=== PATIENT | male | born 1985 | race American Indian/Alaskan Native ===

== ENCOUNTER 2018-05-11 19:09 | Emergency (ER) | payer MEDICARE, MEDICAID ==
[2018-05-11 19:44] VITALS: BP 135/98
== END 2018-05-11 19:50 | disposition left against medical advice (07) ==
LOC: ED 19:09
DX: M25.562 Pain in left knee (principal); Z53.21 Procedure and treatment not carried out due to patient leaving prior to being seen by health care provider

== ENCOUNTER 2018-05-12 07:36 | Emergency (ER) | payer MEDICARE, MEDICAID ==
[2018-05-12 07:57] VITALS: BP 131/92
--- NOTE | 2018-05-12 09:02 | Emergency Department Report ---
ED General Adult HPI - General Chief complaint: Medical Clearance Stated complaint: RING REMOVE Time Seen by Provider: 05/12/18 08:19 Source: patient Mode of arrival: Ambulatory Limitations: No Limitations - History of Present Illness Initial comments: This is a 32 y.o. male that presents with a ring stuck on right 3rd finger for 2 days. Patient reports putting ring on 2 days ago without any problems. When he woke up yesterday his 3rd finger on the right hand was swollen and numb. He is able to move finger but reports feeling tingling sensation as finger is sleep. Patient reports trying to remove but unsuccessful. Onset/Timin -: days(s) Location: upper extremity (right 3rd digit) Radiation: non-radiation Severity scale (0 -10): 0 Quality: aching Consistency: constant Improves with: none Worsens with: movement Associated Symptoms: denies other symptoms Treatments Prior to Arrival: none - Related Data Allergies Allergy/AdvReac Type Severity Reaction Status Date / Time lisinopril Allergy Hives Verified 05/12/18 07:55 ziprasidone [From Geodon] Allergy Hives Verified 05/12/18 07:55 ED Review of Systems ROS: Stated complaint: RING REMOVE Other details as noted in HPI Constitutional: denies: chills, fever Respiratory: denies: cough, shortness of breath, wheezing Cardiovascular: denies: chest pain, palpitations Gastrointestinal: denies: abdominal pain, nausea, diarrhea Musculoskeletal: joint swelling (3rd digit swelling and pain ). denies: back pain, arthralgia Neurological: numbness. denies: headache, weakness, paresthesias Psychiatric: denies: anxiety, depression ED Past Medical Hx - Past Medical History Hx Hypertension: Yes Hx Diabetes: Yes - Social History Smoking Status: Never Smoker Substance Use Type: Alcohol ED Physical Exam - General Limitations: No Limitations General appearance: alert, in no apparent distress - Respiratory Respiratory exam: Present: normal lung sounds bilaterally. Absent: respiratory distress - Cardiovascular Cardiovascular Exam: Present: regular rate, normal rhythm. Absent: systolic murmur, diastolic murmur, rubs, gallop - GI/Abdominal GI/Abdominal exam: Present: soft, normal bowel sounds - Expanded Upper Extremity Exam Right Shoulder Exam: Present: normal inspection, full ROM Upper Arm exam: Present: normal inspection, full ROM Elbow exam: Present: normal inspection, full ROM Forearm Wrist exam: Present: normal inspection, full ROM Hand Wrist exam: Present: tenderness, swelling (swelling of 3rd PIP joint), erythema. Absent: full ROM, abrasion, laceration, ecchymosis, deformity, crepidus, dislocation, amputation, nail avulsion, subungual hematoma - Neurological Exam Neurological exam: Present: alert, oriented X3 - Psychiatric Psychiatric exam: Present: agitated - Skin Skin exam: Present: warm, dry, intact, normal color. Absent: rash ED Course Vital Signs 05/12/18 07:55 Temperature 98.3 F Pulse Rate 103 H Respiratory 18 Rate Blood Pressure 131/92 O2 Sat by Pulse 99 Oximetry ED Medical Decision Making - Medical Decision Making This is a 32 y.o. male that presents with swelling and pain to 3rd phalanx from entrapped ring. Patient is stable and was examined by me. Patient is agitated after 2 failed attempts to remove ring with ring cutter. Security was notified and patient was informed of risk of skin breakdown and tissue necrosis if he doesn't allow us to remove constricting ring. Patient decided to leave against medical advice. Critical care attestation.: If time is entered above; I have spent that time in minutes in the direct care of this critically ill patient, excluding procedure time. ED Disposition Clinical Impression: Left against medical advice, Ring or other jewelry causing external constriction, initial encounter Disposition: DC-07 LEFT AGAINST MED ADVICE Is pt being admited?: No Condition: Stable Referrals: PRIMARY CARE, [Primary Care Provider] - 3-5 Days
== END 2018-05-12 08:59 | disposition left against medical advice (07) ==
LOC: ED 07:36
DX: M79.644 Pain in right finger(s) (principal); I10 Essential (primary) hypertension; E11.9 Type 2 diabetes mellitus without complications; Z88.8 Allergy status to other drugs, medicaments and biological substances; W49.04XA Ring or other jewelry causing external constriction, initial encounter; Y93.89 Activity, other specified; Y92.89 Other specified places as the place of occurrence of the external cause; Y99.8 Other external cause status
CPT/HCPCS: 99282

== ENCOUNTER 2019-08-19 00:10 | Emergency (ER) | payer MEDICARE ==
[2019-08-19 00:19] VITALS: BP 147/83
--- NOTE | 2019-08-19 01:29 | XRay Report ---
CHEST 2 VIEWS INDICATION / CLINICAL INFORMATION: chest pain. COMPARISON: None available. FINDINGS: SUPPORT DEVICES: None. HEART / MEDIASTINUM: No significant abnormality. LUNGS / PLEURA: No significant pulmonary or pleural abnormality. No pneumothorax. ADDITIONAL FINDINGS: No significant additional findings. IMPRESSION: 1. No acute findings. Signer Name: Brennen Rhoades MD Signed: 08/19/2019 1:24 AM Workstation Name: [id number]
[2019-08-19 01:37] LABS: Hematocrit 36.4 % (35.5-45.6); Hemoglobin 12.8 gm/dl (11.8-15.2); Mean Corpuscular HGB Conc 35 % (32-34); Mean Corpuscular Volume 90 fl (84-94); Platelet Count 203 K/mm3 (140-440); Red Blood Count 4.04 M/mm3 (3.65-5.03); Red Cell Distribution Width 15.1 % (13.2-15.2)
[2019-08-19 01:51] LABS: BUN/Creatinine Ratio 16; Blood Urea Nitrogen 13 mg/dL (9-20); Calcium 8.8 mg/dL (8.4-10.2); Hemolysis Index 16
--- NOTE | 2019-08-19 01:57 | Emergency Department Report ---
ED General Adult HPI - General Chief complaint: Pain General Stated complaint: BACK ,FOOT PAIN ,COUGH Time Seen by Provider: 08/19/19 01:01 Source: patient Mode of arrival: Ambulatory Limitations: No Limitations - History of Present Illness Initial comments: Mr. gabino Eaton is a 34 -year-old -[place] male with a history of hypertension, asthma, type 2 diabetes, arthralgia, and depression. pt presents for right sided cp that worsens with cough. there is no fever chills, cough is productive yellow green. pt states symptoms are exacerbated by environmental exposure. Onset/Timin -: month(s) Location: chest Radiation: non-radiation Severity scale (0 -10): 4 Quality: aching Consistency: constant Improves with: none Worsens with: other (environmental exposure ) Associated Symptoms: chest pain, cough - Related Data Previous Rx's Medication Instructions Recorded Last Taken Type ALBUTEROL Inhaler (OR & NICU) 2 puff IH QID PRN #1 inhalation 08/19/19 Unknown Rx [ProAir HFA Inhaler] Benzonatate [Tessalon Perles] 100 mg PO Q8HR PRN #30 capsule 08/19/19 Unknown Rx Ibuprofen [Motrin 800 MG tab] 800 mg PO Q8HR PRN #30 tablet 08/19/19 Unknown Rx predniSONE [Deltasone] 40 mg PO QDAY 5 Days #10 tab 08/19/19 Unknown Rx Allergies Allergy/AdvReac Type Severity Reaction Status Date / Time lisinopril Allergy Hives Verified 05/12/18 07:55 ziprasidone [From Geodon] Allergy Hives Verified 05/12/18 07:55 ED Review of Systems ROS: Stated complaint: BACK ,FOOT PAIN ,COUGH Other details as noted in HPI Constitutional: denies: chills, fever Eyes: denies: eye pain, eye discharge, vision change ENT: congestion. denies: ear pain, throat pain Respiratory: cough. denies: shortness of breath, wheezing Cardiovascular: chest pain Endocrine: no symptoms reported Gastrointestinal: denies: abdominal pain, nausea, vomiting, diarrhea Genitourinary: denies: urgency, dysuria Musculoskeletal: denies: back pain, joint swelling, arthralgia Skin: denies: rash, lesions Neurological: denies: headache, weakness, paresthesias, vertigo Psychiatric: denies: anxiety, depression Hematological/Lymphatic: denies: easy bleeding, easy bruising ED Past Medical Hx - Past Medical History Previous Medical History?: No Hx Hypertension: Yes Hx Diabetes: Yes Hx Arthritis: Yes - Surgical History Past Surgical History?: No - Social History Smoking Status: Current Every Day Smoker Substance Use Type: Alcohol - Medications Home Medications: Home Medications Medication Instructions Recorded Confirmed Last Taken Type ALBUTEROL Inhaler (OR & NICU) 2 puff IH QID PRN #1 inhalation 08/19/19 Unknown Rx [ProAir HFA Inhaler] Benzonatate [Tessalon Perles] 100 mg PO Q8HR PRN #30 capsule 08/19/19 Unknown Rx Ibuprofen [Motrin 800 MG tab] 800 mg PO Q8HR PRN #30 tablet 08/19/19 Unknown Rx predniSONE [Deltasone] 40 mg PO QDAY 5 Days #10 tab 08/19/19 Unknown Rx ED Physical Exam - General Limitations: No Limitations General appearance: alert, in no apparent distress - Head Head exam: Present: atraumatic, normocephalic - Eye Eye exam: Present: normal appearance, PERRL, EOMI Pupils: Present: normal accommodation - ENT ENT exam: Present: normal orophraynx, mucous membranes moist, TM's normal bilaterally, normal external ear exam - Neck Neck exam: Present: normal inspection, full ROM. Absent: tenderness, meningismus, lymphadenopathy, thyromegaly - Respiratory Respiratory exam: Present: normal lung sounds bilaterally, chest wall tenderness (right laterl chest wall pain to palpation). Absent: respiratory distress, wheezes, stridor - Cardiovascular Cardiovascular Exam: Present: regular rate, normal rhythm, normal heart sounds. Absent: systolic murmur, diastolic murmur, rubs, gallop - GI/Abdominal GI/Abdominal exam: Present: soft, normal bowel sounds. Absent: distended, tenderness, bruit, hernia - Rectal Rectal exam: Present: deferred - Extremities Exam Extremities exam: Present: normal inspection, full ROM, normal capillary refill - Back Exam Back exam: Present: normal inspection, full ROM. Absent: tenderness, CVA tend erness (R), CVA tenderness (L), rash noted - Neurological Exam Neurological exam: Present: alert, oriented X3, CN II-XII intact, normal gait - Psychiatric Psychiatric exam: Present: normal affect, normal mood - Skin Skin exam: Present: warm, dry, intact, normal color. Absent: rash ED Course Vital Signs 08/19/19 00:16 Temperature 98.1 F Pulse Rate 105 H Respiratory 18 Rate Blood Pressure 147/83 O2 Sat by Pulse 97 Oximetry ED Medical Decision Making - Lab Data Result diagrams: 08/19/19 01:14 Labs 08/19/19 08/19/19 08/19/19 01:14 01:14 01:14 WBC 11.6 H RBC 4.04 Hgb 12.8 Hct 36.4 MCV 90 MCH 32 MCHC 35 H RDW 15.1 Plt Count 203 Sodium 138 Potassium 3.8 Chloride 99.7 Carbon Dioxide 26 Anion Gap 16 BUN 13 Creatinine 0.8 Estimated GFR > 60 BUN/Creatinine Ratio 16 Glucose 117 H Calcium 8.8 Troponin T < 0.010 - EKG Data EKG shows normal: sinus rhythm, axis, intervals, QRS complexes, ST-T waves Rate: normal - EKG Data When compared to previous EKG there are: other (no previous EKG ) Interpretation: normal EKG (ekg interp by ed attending NSR no ST Elevated VA, ) - Radiology Data Radiology results: report reviewed, image reviewed Findings [facility] [address] [place] [address] XRay Report Signed Patient: JESSICA SOSA MR#: [id number] : 1985 Acct:[id number] Age/Sex: 34 / M ADM Date: 08/19/19 Loc: ED Attending Dr: Ordering Physician: JOSE LUIS ROLDAN NP Date of Service: 08/19/19 Procedure(s): XR chest routine 2V Accession Number(s): [id number] cc: JOSE LUIS ROLDAN NP Fluoro Time In Minutes: CHEST 2 VIEWS INDICATION / CLINICAL INFORMATION: chest pain. COMPARISON: None available. FINDINGS: SUPPORT DEVICES: None. HEART / MEDIASTINUM: No significant abnormality. LUNGS / PLEURA: No significant pulmonary or pleural abnormality. No pneumothora x. ADDITIONAL FINDINGS: No significant additional findings. IMPRESSION: 1. No acute findings. Signer Name: Brennen Rhoades MD Signed: 08/19/2019 1:24 AM Workstation Name: [id number] Transcribed By: JOSE Dictated By: Brennen Rhoades MD Electronically Authenticated By: Brennen Rhoades MD Signed Date/Time: 08/19/19123 DD/ 3 TD/TT: - Medical Decision Making symptoms are improved, cxr: Gloria no infiltrate no opacities, ekg: NSR no ST Elevated VA, trop: <0.01, heart score : 0. TAYLOR score : 0, will tx for URI, refill, albuterol inhaler, prednisone, ibuprofen, Tessalon pearls there is and has not been fever. vital signs are improved pt will follow up with pcp Dr Goss, and take all medications as prescribed. pt verbalized agreement and understanding of discharge plan. Critical care attestation.: If time is entered above; I have spent that time in minutes in the direct care of this critically ill patient, excluding procedure time. ED Disposition Clinical Impression: Bronchitis URI (upper respiratory infection) Qualifiers: URI type: unspecified viral URI Qualified Code(s): J06.9 - Acute upper res piratory infection, unspecified Disposition: TO HOME OR SELFCARE Is pt being admited?: No Does the pt Need Aspirin: No Condition: Stable Instructions: Chronic Bronchitis (ED), Upper Respiratory Infection (ED) Prescriptions: predniSONE [Deltasone] 40 mg PO QDAY 5 Days #10 tab Ibuprofen [Motrin 800 MG tab] 800 mg PO Q8HR PRN #30 tablet PRN Reason: Pain , Severe (7-10) ALBUTEROL Inhaler (OR & NICU) [ProAir HFA Inhaler] 2 puff IH QID PRN #1 inhalation PRN Reason: Shortness Of Breath Benzonatate [Tessalon Perles] 100 mg PO Q8HR PRN #30 capsule PRN Reason: Cough Referrals: FRANCES GOSS MD [Referring] - 3-5 Days [facility] [Provider Group] - 3-5 Days Forms: Work/School Release Form(ED) Time of Disposition: 02:11
== END 2019-08-19 02:22 | disposition home or self-care (01) ==
LOC: ED 00:10
DX: J40 Bronchitis, not specified as acute or chronic (principal); I10 Essential (primary) hypertension; E11.9 Type 2 diabetes mellitus without complications; M19.90 Unspecified osteoarthritis, unspecified site; F17.200 Nicotine dependence, unspecified, uncomplicated
CPT/HCPCS: 36415; 71046; 80048; 84484; 85027; 93005; 93010

== ENCOUNTER 2019-09-23 08:56 | Emergency (ER) | payer MEDICARE ==
--- NOTE | 2019-09-23 09:31 | Emergency Department Report ---
Eye Injury/Foreign Body - HPI Duration: 1 month Eye Location: Bilateral Severity: Moderate Tetanus Status: Unknown Eye Symptoms: Eye Pain: Yes, Blurred Vision: No, Eye Redness: No, Grinding/Hammering Metal: No, Used Eye Protection: No, Contact Lens Use: No, Recalls Injury: No, Photophobia: No Other History: This is a 34-year-old -[place] male who presents with bilateral eye pain and headache for 1-2 months. Patient reports symptoms are intermittent. He reports pain as a throbbing pain to left frontal and behind both eyes causing his eyes to hurt. Past medical history of diabetes type 2, hypertension, arthritis, bipolar, schizoaffective disorder. Reports intermittent clear discharge with blurry vision. Reports visual changes started with intermittent headaches. Denies contact lens use, glasses, or recent injury. Denies grinding sensation, swelling, photophobia, fever, chills, cough, nausea or vomiting, body aches, or coryza. ED Review of Systems ROS: Stated complaint: EYE PAIN EXTREME Other details as noted in HPI Constitutional: denies: chills, fever Eyes: eye pain (bilateral), eye discharge (bilateral). denies: vision change ENT: denies: ear pain, throat pain Respiratory: denies: cough, shortness of breath, wheezing Cardiovascular: denies: chest pain, palpitations Gastrointestinal: denies: abdominal pain, nausea, diarrhea Skin: denies: rash, lesions Neurological: headache. denies: weakness, paresthesias Psychiatric: denies: anxiety, depression ED Past Medical Hx - Past Medical History Previous Medical History?: Yes Hx Hypertension: Yes Hx Diabetes: Yes Hx Arthritis: Yes - Surgical History Past Surgical History?: No - Social History Smoking Status: Current Every Day Smoker - Medications Home Medications: Home Medications Medication Instructions Recorded Confirmed Last Taken Type ALBUTEROL Inhaler (OR & NICU) 2 puff IH QID PRN #1 inhalation 08/19/19 Unknown Rx [ProAir HFA Inhaler] Benzonatate [Tessalon Perles] 100 mg PO Q8HR PRN #30 capsule 08/19/19 Unknown Rx Ibuprofen [Motrin 800 MG tab] 800 mg PO Q8HR PRN #30 tablet 08/19/19 Unknown Rx predniSONE [Deltasone] 40 mg PO QDAY 5 Days #10 tab 08/19/19 Unknown Rx Erythromycin [Erythromycin Ophth 10 applic OP QID 7 Days #1 tube 09/23/19 Unkn own Rx Oint] Eye Injury Exam - Exam General: Vital signs noted. No distress. Alert and acting appropriately. - Visual Acuity Left Vision Acuity Degree: 20/40 Right Vision Acuity Degree: 20/70 Bilateral Vision Acuity Degree: 20/50 Eye Exam: Both EOMI, Both Mucous Discharge, Neither Injection, Neither Chemosis, Neither Abnormal Pupil, Neither Eye Foreign Body, Neither Lid Foreign Body, Neither Purulent Discharge, Neither Fluorescein Uptake, Neither Fluorescein Uptake (slit lamp), Neither Cell/Flare (slit lamp), Neither Corneal Edema, Neither Photophobia ED Course Vital Signs 09/23/19 09:06 Temperature 98.5 F Pulse Rate 102 H Respiratory 16 Rate Blood Pressure 136/76 O2 Sat by Pulse 98 Oximetry ED Medical Decision Making - Radiology Data Radiology results: report reviewed CT head/brain wo con INDICATION: headache. TECHNIQUE: Routine CT head without contrast. All CT scans at this location are performed using CT dose reduction for ALARA by means of automated exposure control. COMPARISON: None. FINDINGS: BRAIN / INTRACRANIAL CONTENTS: No acute hemorrhage, midline shift, or hydrocephalus. No appreciable acute large territorial or lacunar infarct. No chronic infarct or focal atrophy. Normal brain volume and ventricular/sulcal size for age. There is an incidental mild prominent cisterna magna, a developmental variant. ORBITS: No significant abnormality of visualized orbits. SINUSES / MASTOIDS: No significant abnormality of visualized sinuses and mastoid air cells. ADDITIONAL FINDINGS: None. IMPRESSION: 1. No acute or concerning intracranial abnormality. - Medical Decision Making This is a 34 y.o. male that presents with headache and bilateral arm pressure for 1-2 months intermittently. Past medical history of bipolar, schizoaffective disorder, arthritis, hypertension, and hypertension. Patient is stable and was examined by me. Given analgesics while in the ER. CT of head obtained and dictated by radiologist with no acute findings. Visual acuity obtained and 20/50 bilateral, 20/70 on the right, and 20/40 on the left. Bilateral eye pressure was checked with tonometer, 15 on the right and 18 on the left. Patient denies grinding sensation. Instructed to follow-up with the ophtha lmologist for further evaluation. Started on erythromycin ointment for conjunctivitis. Referral to life skills coordinator for continued care. Follow up with PCP and have repeat CT in 6 months. No further questions noted by the patient. Discharged home in stable condition. Follow up with PCP in 24-72 hours. Critical care attestation.: If time is entered above; I have spent that time in minutes in the direct care of this critically ill patient, excluding procedure time. ED Disposition Clinical Impression: Pain of both eyes Headache Qualifiers: Headache type: tension-type Headache chronicity pattern: acute headache Intractability: not intractable Qualified Code(s): G44.209 - Tension-type headache, unspecified, not intractable Conjunctivitis Qualifiers: Conjunctivitis type: acute Acute conjunctivitis type: unspecified Laterality: bilateral Qualified Code(s): H10.33 - Unspecified acute conjunctivitis, bilateral Disposition: TO HOME OR SELFCARE Is pt being admited?: No Condition: Stable Instructions: Acute Headache (ED), Conjunctivitis (ED) Additional Instructions: Pinkeye is very contagious so please wash hands frequently. Don't share any towels or bedding to prevent spread of infection. Follow up with life skills coordinator from the referrals list below. Use cool compress to each eye to decrease swelling. Avoid rubbing or touching eyes, because rubbing eyes can cause worsening symptoms. Take medication as prescribed. Return to ER if swelling don't improve or difficulty breathing after 2 days of medication. Prescriptions: Erythromycin [Erythromycin Ophth Oint] 10 applic OP QID 7 Days #1 tube Referrals: MARK WATERMAN MD [Staff Physician] - 3-5 Days [facility] [Provider Group] - 3-[address] [facility] [Provider Group] - 3-5 Days [facility] [Outside] - 3-5 Days Time of Disposition: 11:58
--- NOTE | 2019-09-23 10:50 | Cat Scan Report ---
CT head/brain wo con INDICATION: headache. TECHNIQUE: Routine CT head without contrast. All CT scans at this location are performed using CT dos e reduction for ALARA by means of automated exposure control. COMPARISON: None. FINDINGS: BRAIN / INTRACRANIAL CONTENTS: No acute hemorrhage, midline shift, or hydrocephalus. No appreciable a cute large territorial or lacunar infarct. No chronic infarct or focal atrophy. Normal brain volume a nd ventricular/sulcal size for age. There is an incidental mild prominent cisterna magna, a developme ntal variant. ORBITS: No significant abnormality of visualized orbits. SINUSES / MASTOIDS: No significant abnormality of visualized sinuses and mastoid air cells. ADDITIONAL FINDINGS: None. IMPRESSION: 1. No acute or concerning intracranial abnormality. Signer Name: Judson Kessler MD Signed: 09/23/2019 10:46 AM Workstation Name: [id number]
[2019-09-23] MEDS ORDERED: ONDANSETRON 4 MG ODT TAB PO ONE (10:54)
[2019-09-23] MEDS ORDERED: KETOROLAC 30 MG/1 ML INJ IM ONE (10:54)
[2019-09-23] MEDS ORDERED: TETRACAINE 0.5% OPHTH SOLN 4ML OU ONE (11:03)
[2019-09-23 12:16] VITALS: BP 131/70
== END 2019-09-23 12:14 | disposition home or self-care (01) ==
LOC: ED 08:56
DX: G44.209 Tension-type headache, unspecified, not intractable (principal); H10.33 Unspecified acute conjunctivitis, bilateral; I10 Essential (primary) hypertension; E11.9 Type 2 diabetes mellitus without complications; M19.90 Unspecified osteoarthritis, unspecified site; F17.200 Nicotine dependence, unspecified, uncomplicated; Z79.899 Other long term (current) drug therapy; Z88.5 Allergy status to narcotic agent
CPT/HCPCS: 70450; 96372; 99283; J1885; Q0162

== ENCOUNTER 2020-01-28 00:13 | Emergency (ER) | payer MEDICARE ==
[2020-01-28 00:52] VITALS: BP 122/78
[2020-01-28 02:05] LABS: Basophils # (Auto) 0.1 K/mm3 (0.0-0.1); Basophils % (Auto) 0.7 % (0.0-1.8); Eosinophils # (Auto) 0.1 K/mm3 (0.0-0.4); Eosinophils % (Auto) 1.6 % (0.0-4.3); Hematocrit 43.2 % (35.5-45.6); Hemoglobin 14.5 gm/dl (11.8-15.2); Lymphocytes % (Auto) 34.1 % (13.4-35.0); Mean Corpuscular HGB Conc 34 % (32-34); Mean Corpuscular Volume 89 fl (84-94); Monocytes # (Auto) 1.2 K/mm3 (0.0-0.8); Platelet Count 186 K/mm3 (140-440); Red Blood Count 4.86 M/mm3 (3.65-5.03); Red Cell Distribution Width 16.9 % (13.2-15.2)
[2020-01-28 02:17] LABS: Amphetamine Screen,Urine PRESUMPTIVE NEGATIVE; Benzodiazepines Screen,Urine PRESUMPTIVE NEGATIVE; Bilirubin,Urine NEG (Negative); Blood,Urine NEG (Negative); Cannabinoid Screen,Urine PRESUMPTIVE NEGATIVE; Cocaine Screen,Urine PRESUMPTIVE NEGATIVE; Color,Urine Yellow (Yellow); Methadone Screen,Urine PRESUMPTIVE NEGATIVE; Mucus,Urine 2+ /HPF; Opiate Screen,Urine PRESUMPTIVE NEGATIVE
[2020-01-28 02:18] LABS: BUN/Creatinine Ratio 11; Blood Urea Nitrogen 10 mg/dL (9-20); Calcium 9.8 mg/dL (8.4-10.2); Hemolysis Index 13
== END 2020-01-28 00:55 | disposition left against medical advice (07) ==
LOC: ED 00:13
DX: R55 Syncope and collapse (principal); Z53.21 Procedure and treatment not carried out due to patient leaving prior to being seen by health care provider
CPT/HCPCS: 36415; 80048; 80307; 80320; 81001; 85025; 93005; 93010; G0480

== ENCOUNTER 2020-02-09 14:47 | Emergency (ER) | payer MEDICARE | END 2020-02-09 15:00 | disposition left against medical advice (07) | LOC: ED 14:47 | DX: R42 Dizziness and giddiness (principal); Z53.21 Procedure and treatment not carried out due to patient leaving prior to being seen by health care provider ==

== ENCOUNTER 2020-08-15 20:09 | Emergency (ER) | payer MEDICARE ==
[2020-08-15 20:25] VITALS: BP 122/79
--- NOTE | 2020-08-15 22:53 | XRay Report ---
CHEST 2 VIEWS INDICATION / CLINICAL INFORMATION: chestpain. COMPARISON: 08/19/2019. FINDINGS: SUPPORT DEVICES: None. HEART / MEDIASTINUM: No significant abnormality. LUNGS / PLEURA: No significant pulmonary or pleural abnormality. No pneumothorax. ADDITIONAL FINDINGS: No significant additional findings. IMPRESSION: No acute cardiopulmonary abnormality. Signer Name: Alok Swift MD Signed: 08/15/2020 10:48 PM Workstation Name: [id number]
== END 2020-08-16 02:00 | disposition left against medical advice (07) ==
LOC: ED 20:09
DX: R07.89 Other chest pain (principal); Z53.21 Procedure and treatment not carried out due to patient leaving prior to being seen by health care provider
CPT/HCPCS: 71046; 93005

== ENCOUNTER 2021-11-07 08:49 | Emergency (ER) | payer MEDICARE ==
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
[2021-11-07 11:17] VITALS: BP 148/90
== END 2021-11-07 11:15 | disposition home or self-care (01) ==
LOC: ED 08:49
DX: M25.571 Pain in right ankle and joints of right foot (principal); M25.531 Pain in right wrist; F31.9 Bipolar disorder, unspecified; F20.9 Schizophrenia, unspecified; I10 Essential (primary) hypertension; E11.9 Type 2 diabetes mellitus without complications; M19.90 Unspecified osteoarthritis, unspecified site; F17.200 Nicotine dependence, unspecified, uncomplicated; F12.90 Cannabis use, unspecified, uncomplicated; Z88.8 Allergy status to other drugs, medicaments and biological substances; Z79.899 Other long term (current) drug therapy
CPT/HCPCS: 99282

== ENCOUNTER → 2021-11-07 | Emergency (ER) | payer MEDICARE ==
[2021-11-07 03:27] VITALS: BP 136/76
== END ==
LOC: ED 03:10
DX: M79.673 Pain in unspecified foot (principal); Z53.21 Procedure and treatment not carried out due to patient leaving prior to being seen by health care provider